=== PATIENT | female | born 2000 | race Caucasian/White ===

== ENCOUNTER 2025-04-15 01:31 | Emergency (ER) | payer OTHER ==
[~2025-04-15] VITALS: Ht 157.5 cm; Wt 61.4 kg
[2025-04-15 02:01] VITALS: O2SAT 96
[2025-04-15] MEDS: ONDANSETRON 4MG 2ML VIAL IV ONE (02:50)
[2025-04-15] MEDS: NS (Normal Saline) 0.9% 1,000 ML IV ONE ×2 (02:52→02:53)
== END 2025-04-15 05:18 | disposition home or self-care (01) ==
LOC: EDBD 01:31 → M ED 01:31
DX: F10.129 Alcohol abuse with intoxication, unspecified (principal)
CPT/HCPCS: 82077; 96361; 96374; 99284; J2405